=== PATIENT | male | born 1985 | race Caucasian/White ===

== ENCOUNTER 2017-02-09 19:44 | Emergency (ER) | payer OTHER ==
[~2017-02-09] VITALS: Ht 180.3 cm; Wt 159.2 kg
[~2017-02-09 19:44] MED LIST: AUGMENTIN875 MG PO; CITRATE OF MAG296 ML PO; ENDOCET 5-3251 EACH PO; NAPROXEN500 MG PO; NO HOME MEDS; PERCOCET 5/31 TABLET PO
[2017-02-09 20:39] LABS: HEMATOCRIT 46.4 % (38.0-50.0); MCH 27.2 PG (29.0-34.0); MCHC 32.8 G/DL (30.0-36.0); MCV 83.2 FL (86-99); MEAN PLAT.VOLUME 9.4 uM^3 (9.0-12.4); PLATELET COUNT 266 K/uL (156-360); RBC DIS.WIDTH-CV 13.2 % (11.8-14.6); RBC DIS.WIDTH-SD 39.8 % (39-53); RED BLOOD COUNT 5.58 M/uL (4.00-5.50); WHITE BLOOD COUNT 12.9 K/uL (4.1-10.2)
[2017-02-09 20:47] LABS: CHLORIDE 103 mEq/L (99-109); POTASSIUM 4.2 mEq/L (3.7-5.4); SODIUM 138 mEq/L (136-147)
[2017-02-09 20:49] LABS: GLUCOSE 103 mg/dL (70-99)
[2017-02-09 20:50] LABS: ANION GAP 10 MEQ/L (2-14)
[2017-02-09 20:51] LABS: TOTAL BILIRUBIN 1.3 mg/dL (0.0-1.0)
[2017-02-09 20:52] LABS: ALKALINE PHOSPHATASE 61 IU/L (3-129)
[2017-02-09 20:53] LABS: GFR ESTIMATE (CALCULATED) > 59 mL/min/
[2017-02-09 20:54] LABS: UREA NITROGEN (BUN) 11 mg/dL (9-23)
[2017-02-09 20:58] LABS: LIPASE 18 U/L (1.0-51.0)
[2017-02-09 21:41] LABS: ADD MIUA? YES; BILIRUBIN NEGATIVE; BLOOD NEGATIVE; COLOR YELLOW ((YELLOW)); GLUCOSE (STRIP) NEGATIVE; KETONES NEGATIVE; LEUKOCYTES NEGATIVE; NITRITE NEGATIVE; PROTEIN (STRIP) NEGATIVE; SPECIFIC GRAVITY 1.017 (1.000-1.030); UROBILINOGEN 0.2 MG/DL (0.2-1.0)
[2017-02-09 21:44] LABS: BACTERIA NONE SEEN /HPF; EPITHELIAL CELLS RARE /HPF; MUCUS TRACE /LPF; RED BLOOD CELLS 0-5 /HPF (0-5); UCUL ADDED? NO; WHITE BLOOD CELLS 0-5 /HPF (0-5)
[2017-02-09 21:51] LABS: DIRECT BILIRUBIN 0.4 mg/dL (0.0-0.3)
[2017-02-10] MEDS ORDERED: BENTYL10 MG PO (00:03)
[2017-02-10] MEDS ORDERED: COLACE100 MG PO (00:03)
[2017-02-10] MEDS ORDERED: ZOFRAN4 MG PO (00:03)
[2017-02-10 00:30] VITALS: BP 134/73
== END 2017-02-10 00:32 | disposition home or self-care (01) ==
LOC: EME 19:44
DX: R10.11 Right upper quadrant pain (principal); E66.9 Obesity, unspecified; Z88.1 Allergy status to other antibiotic agents
CPT/HCPCS: 74022; 74176; 76705; 80053; 81003; 82248; 83690; 85025; 85027; 99281; 99284; J3010